=== PATIENT | male | born 1945 | race Caucasian/White ===

== ENCOUNTER 2021-03-23 08:30 | Emergency (ER) | payer OTHER ==
[2021-03-23] MEDS ORDERED: Labetalol HCl 100 MG/20 ML VIAL ONE ×2 (09:00→10:45)
[2021-03-23 10:02] LABS: ALT (SGPT) 13 U/L (8-55); AST (SGOT) 18 U/L (5-34); Albumin 4.3 g/dL (3.4-4.8); Alkaline Phosphatase 57 U/L (40-110); Anion Gap 18 mmol/L (10-20); BUN (Urea Nitrogen) 18 mg/dL (8.4-25.7); Bilirubin, Total 0.7 mg/dL (0.2-1.2); CK (CPK) 114 U/L (30-200); Calc. Creatinine Clearance 0 mL/min (70-130); Calcium 9.3 mg/dL (7.8-10.44); Carbon Dioxide 21 mmol/L (23-31); Chloride 106 mmol/L (98-107); Globulin 2.7 g/dL (2.4-3.5); Glucose 96 mg/dL (83-110); Magnesium 1.7 mg/dL (1.6-2.6); Sodium 141 mmol/L (136-145)
[2021-03-23 11:00] LABS: SARS-CoV-2 NAA Rapid Test Not Detected (NotDetected)
== END 2021-03-23 13:27 | disposition short-term general hospital (02) ==
LOC: EEVIPCON 08:30 → CSHERS 08:30
DX: I16.1 Hypertensive emergency (principal); M19.90 Unspecified osteoarthritis, unspecified site; Z79.82 Long term (current) use of aspirin; Z79.899 Other long term (current) drug therapy
CPT/HCPCS: 0240U; 36415; 71045; 80053; 82550; 83735; 83880; 84443; 84484; 93005; 93010; 96374; 96376